=== PATIENT | male | born 1995 | race Caucasian/White ===

== ENCOUNTER 2018-06-12 18:13 | Emergency (ER) | payer MEDICAID ==
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
[2018-06-12] MEDS ORDERED: NS 1,000 ML IV ONE (18:39)
[2018-06-12 19:06] LABS: PLATELET COUNT 271 10^3/uL (150-400)
[2018-06-12 19:20] LABS: CREATINE KINASE 1016 IU/L (0-224)
[2018-06-12 20:38] LABS: CREATINE KINASE 848 IU/L (0-224)
[2018-06-12 20:51] VITALS: BP 160/105
== END 2018-06-12 20:50 | disposition home or self-care (01) ==
LOC: EDUNIT#
DX: F15.10 Other stimulant abuse, uncomplicated (principal); F41.8 Other specified anxiety disorders; E86.9 Volume depletion, unspecified
CPT/HCPCS: 80305; G0480

== ENCOUNTER 2018-06-12 22:12 | Emergency (ER) | payer MEDICAID, OTHER ==
--- NOTE | 2018-06-12 22:13 | EDPHY ---
H & P Time Seen by Provider: 06/12/18 22:13 HPI/ROS: HPI CHIEF COMPLAINT: Agitation, paranoia, recent methamphetamine use HISTORY OF PRESENT ILLNESS: This is a 22-year-old male, he staying at a long-term house, he admits to doing methamphetamine 2 days ago, presents emergency room after being seen earlier for anxiety, acute agitation, paranoia. Patient states people are chasing him. He was seen here earlier in common cooperative and was discharged. However when out to the parking lot was looking through cars in causing a disturbance. He was brought back to the emergency room. He states he feels very anxious. He states people are chasing him. Past Medical History: He denies significant medical history Past Surgical History: Denies significant surgical history Social History: Methamphetamine use. Family History: Noncontributory ROS REVIEW OF SYSTEMS: 10 Systems were reviewed and negative with the exception of the elements mentioned in the history of present illness. Exam Constitutional triage nursing summary reviewed, vital signs reviewed, awake/ alert. Eyes normal conjunctivae and sclera, EOMI, PERRLA. HENT normal inspection, atraumatic, moist mucus membranes, no epistaxis, neck supple/ no meningismus, no raccoon eyes. Respiratory clear to auscultation bilaterally, normal breath sounds, no respiratory distress, no wheezing. Cardiovascular rate normal, regular rhythm, no murmur, no edema, distal pulses normal. Gastrointestinal soft, non-tender, no rebound, no guarding, normal bowel sounds, no distension, no pulsatile mass. Genitourinary no CVA tenderness. Musculoskeletal no midline vertebral tenderness, full range of motion, no calf swelling, no tenderness of extremities, no meningismus, good pulses, neurovascularly intact. Skin pink, warm, & dry, no rash, skin atraumatic. Neurologic awake, alert and oriented x 3, AAOx3, moves all 4 extremities equally, motor intact, sensory intact, CN II-XII intact, normal cerebellar, normal vision, normal speech. Psychiatric the paranoid, anxious, agitated. Heme/Lymph/Immune no lymphadenopathy. Differential Diagnosis: Includes but is not limited to in a particular order paranoia from methamphetamine use, acute agitation from methamphetamine, underlying mental illness, mood disorder, bipolar disorder, psychosis drug induced Medical Decision Making: Plan for this patient 10 mg p.o. Zyprexa, blood draw all, and detainer. At this time will not place the patient on M1 hold. However will pull bloods. Will re-evaluate later this morning after he sleeps and rest and receive Zyprexa to see if his mental state improves. Re-evaluation: 625: No acute events overnight patient has been resting after Zyprexa in 10 mg IM Haldol. He is not on M1 hold he will need to re-evaluation once awake. 0712: Patient re-evaluated this time is resting comfortably no acute distress. He is mentating appropriately. He is, cooperative he answers my questions appropriately. He is alert and oriented. He does not appear psychotic. Mentating appropriately. He states that he would like to go home to his long-term house. Denies any suicidal homicidal ideation. Denies being depressed. Denies wanting to hurt somebody else. Denies want hurt himself. I do recommend that he stop doing methamphetamine as this is most likely the cause of his psychosis. He received Haldol and Zyprexa last night. He slept almost the entire night and now is much more appropriate. He denies being paranoid. He is not seeing anything and is safe for discharge Source: Patient - Medical/Surgical History Hx Asthma: Yes Hx Chronic Respiratory Disease: No Hx Diabetes: No Hx Cardiac Disease: No Hx Renal Disease: No Hx Cirrhosis: No Hx Alcoholism: No Hx HIV/AIDS: No Hx Splenectomy or Spleen Trauma: No Other PMH: asthma, depression and anxiety - Social History Smoking Status: Never smoked Constitutional: Initial Vital Signs Temperature (C) 37 C 06/12/18 22:26 Heart Rate 120 H 06/12/18 22:26 Respiratory Rate 16 06/12/18 22:26 Blood Pressure 135/74 H 06/12/18 22:26 O2 Sat (%) 96 06/12/18 22:26 O2 Delivery Mode Room Air Allergies/Adverse Reactions: amoxicillin Allergy (Verified 06/12/18 22:36) Home Medications: Medication Instructions Recorded Effexor Xr 06/12/18 Medical Decision Making - Data Points Laboratory Results: Laboratory Results 06/12/18 22:30 06/12/18 22:30 06/12/18 06/12/18 06/12/18 22:30 22:30 22:30 WBC 8.10 10^3/uL 10^3/uL (3.80-9.50) RBC 4.94 10^6/uL 10^6/uL (4.40-6.38) Hgb 14.3 g/dL g/dL (13.7-17.5) Hct 41.2 % % (40.0-51.0) MCV 83.4 fL fL (81.5-99.8) MCH 28.9 pg pg (27.9-34.1) MCHC 34.7 g/dL g/dL (32.4-36.7) RDW 11.9 % % (11.5-15.2) Plt Count 261 10^3/uL 10^3/uL (150-400) MPV 9.7 fL fL (8.7-11.7) Neut % (Auto) 61.1 % % (39.3-74.2) Lymph % (Auto) 26.0 % % (15.0-45.0) [place] % (Auto) 9.6 % % (4.5-13.0) Eos % (Auto) 2.2 % % (0.6-7.6) Baso % (Auto) 0.7 % % (0.3-1.7) Nucleat RBC Rel Count 0.0 % % (0.0-0.2) Absolute Neuts (auto) 4.94 10^3/uL 10^3/uL (1.70-6.50) Absolute Lymphs (auto) 2.11 10^3/uL 10^3/uL (1.00-3.00) Absolute Monos (auto) 0.78 10^3/uL 10^3/uL (0.30-0.80) Absolute Eos (auto) 0.18 10^3/uL 10^3/uL (0.03-0.40) Absolute Basos (auto) 0.06 10^3/uL 10^3/uL (0.02-0.10) Absolute Nucleated RBC 0.00 10^3/uL 10^3/uL (0-0.01) Immature Gran % 0.4 % % (0.0-1.1) Immature Gran # 0.03 10^3/uL 10^3/uL (0.00-0.10) Sodium 141 mEq/L mEq/L (135-145) Potassium 4.1 mEq/L mEq/L (3.3-5.0) Chloride 108 mEq/L mEq/L (97-110) Carbon Dioxide 22 mEq/l mEq/l (22-31) Anion Gap 11 mEq/L mEq/L (8-16) BUN 13 mg/dL mg/dL (7-23) Creatinine 0.7 mg/dL mg/dL (0.7-1.3) Estimated GFR > 60 Glucose 87 mg/dL mg/dL (70-100) Calcium 9.7 mg/dL mg/dL (8.5-10.4) Urine Opiates Screen NEGATIVE (NEGATIVE) Urine Barbiturates NEGATIVE (NEGATIVE) Ur Phencyclidine Scrn NEGATIVE (NEGATIVE) Ur Amphetamine Screen NEGATIVE (NEGATIVE) U Benzodiazepines Scrn NEGATIVE (NEGATIVE) Urine Cocaine Screen NEGATIVE (NEGATIVE) U Marijuana (THC) Screen NEGATIVE (NEGATIVE) Ethyl Alcohol < 10 mg/dL mg/dL (0-10) Medications Given: Discontinued Medications Haloperidol Lactate (Haldol Injection) 10 mg IM EDNOW ONE Stop: 06/12/18 23:39 Last Admin: 06/12/18 23:42 Dose: 10 mg Olanzapine (Olanzapine) 10 mg PO ONCE ONE Stop: 06/12/18 22:22 Last Admin: 06/12/18 22:36 Dose: 10 mg Departure - Departure Disposition: Home, Routine, Self-Care Clinical Impression: Methamphetamine abuse Condition: Good Instructions: Methamphetamine Abuse (ED) Additional Instructions: 1. Please stop doing methamphetamine. It is very dangerous. Referrals: NONE *PRIMARY CARE P,. [Primary Care Provider] - As per Instructions
[2018-06-12] MEDS ORDERED: OLANZapine 5 MG TAB PO ONE (22:21)
[2018-06-12 22:43] LABS: PLATELET COUNT 261 10^3/uL (150-400)
[2018-06-12] MEDS ORDERED: HALOPERIDOL LACT 5 MG/ML INJ ONE (23:34)
[2018-06-12] MEDS ORDERED: HALOPERIDOL LACT 5 MG/ML INJ IM ONE (23:38)
[2018-06-13 07:21] VITALS: BP 123/79
--- NOTE | 2018-06-13 07:25 | ASMTTCLDSP ---
TLC Discharge Disposition Disposition: Answers: Discharge Disposition Notes: Notes: In consultation with [facility] ED physician, Vladimir Beltran MD concurred that the patient does not appear to meet 27-65 criteria requiring psychiatric hospitalization as patient does not appear to be an imminent risk of harm to self/others/gravely disabled due to a mental illness condition. Was patient given the Answers: Not applicable Inpatient Behavioral Health Prohibited Belongings List while in the ED? Date Signed: 06/13/2018 07:23 AM Electronically Signed By:Richa Rivera
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
== END 2018-06-13 08:35 | disposition home or self-care (01) ==
PROC: GZ11ZZZ Psychological Tests, Personality and Behavioral (ICD-10-PCS; principal; 2018-06-12)
DX: F15.10 Other stimulant abuse, uncomplicated (principal)
CPT/HCPCS: 80305; G0480; J1630

== ENCOUNTER 2018-06-14 19:26 | Emergency (ER) | payer MEDICAID ==
[2018-06-14] MEDS ORDERED: NS 1,000 ML IV ONE (19:33)
[2018-06-14] MEDS ORDERED: IOPAMIDOL (ISOVUE-300) 100 ML BTL ONE (19:35)
--- NOTE | 2018-06-14 19:38 | EDPHY ---
General Time Seen by Provider: 06/14/18 19:34 Narrative: CHIEF COMPLAINT: Jaw pain HISTORY OF PRESENT ILLNESS: Patient presents by EMS and is seen at time arrival. He complains of right jaw pain points to the right mandible. He rates it as severe pain. Started earlier today. Unable to open his mouth. No fever chills. No chest pain or cough. He says that he removed 1 of his own teeth last week due to a cavity. He says it was so loose he was able to remove easily. He was doing fine until earlier today. He has no other associated complaints or modifying factors. REVIEW OF SYSTEMS: 10 systems were reviewed and negative with the exception of the elements mentioned in the history of present illness. PCP: None SPECIALISTS: None PAST MEDICAL HISTORY: Denies any medical history but takes venlafaxine PAST SURGICAL HISTORY: No surgical history SOCIAL HISTORY: Admits to daily tobacco use. Denies any current drug use but reports recent methamphetamine use. FAMILY HISTORY: Noncontributory EXAMINATION: General Appearance: Alert, no distress Head: normocephalic, atraumatic Eyes: Pupils equal and round, no conjunctival pallor or injection ENT, Mouth: Mucous membranes moist. There is trismus and I am unable to fully visualize the posterior teeth on the right mandible. Unable to visualize the uvula and it is midline. No obvious edema of the posterior pharynx. Neck: Normal inspection, supple, non-tender. There is tender right anterior cervical lymphadenopathy. Respiratory: Lungs are clear to auscultation. No wheezing rhonchi or crackles Cardiovascular: Regular rate and rhythm. No murmur. Neurological: A&O, nonfocal Skin: Warm and dry, no rash Extremities: Nontender, no pedal edema Psychiatric: Mood and affect normal DIFFERENTIAL DIAGNOSES: Including but not limited to dental abscess, facial abscess, Ashwin's angina, dental pain, mandibular pain, bipolar disorder MDM: 7:35 p.m. Right jaw pain with trismus on exam. Unable to fully visualize the back teeth on the right mandible. Reports self excretion of a tooth last week, but is difficult to visualize this given the trismus. I have ordered imaging in the soft tissue to rule out abscess. Vital signs are within normal limits. No SIRS criteria. 8:00 p.m. Patient's CBC is unremarkable with minimal leukocytosis with no shift. Creatinine is normal at 0.6. I have notified non destructive evaluation technician to proceed with scan. 8:45 p.m. Notified by radiologist Dr. Calzada. There is no acute findings on the CT scan of the neck soft tissue. No abscess. Mild asymmetry noted, thought to be positional. Patient re-evaluated. He is now open his mouth more former. Unable to visualize the posterior pharynx and it is symmetric with midline uvula. There is no palpable fluctuance or abscess. Discussed the need for follow-up with dentist due to his likely dental anders pain. We discussed ED precautions. He is discharged in stable condition. SUPERVISION: This patient was independently evaluated without direct involvement of or examination by the attending physician. CONSULTATION: None - History Smoking Status: Current every day smoker - Objective Vital Signs: Initial Vital Signs Temperature (C) 99.3 F 06/14/18 19:32 Heart Rate 94 06/14/18 19:32 Respiratory Rate 18 06/14/18 19:32 Blood Pressure 148/84 H 06/14/18 19:32 O2 Sat (%) 96 06/14/18 19:32 O2 Delivery Mode Room Air Allergies/Adverse Reactions: amoxicillin Allergy (Verified 06/12/18 22:36) Home Medications: Medication Instructions Recorded Effexor Xr 06/12/18 Ibuprofen 600 mg PO Q8 PRN #15 tablet 06/14/18 Laboratory Results: Laboratory Results 06/14/18 19:40 06/14/18 06/14/18 19:55 19:40 WBC 10.71 10^3/uL H 10^3/uL (3.80-9.50) RBC 5.18 10^6/uL 10^6/uL (4.40-6.38) Hgb 15.2 g/dL g/dL (13.7-17.5) POC Hgb 15.3 gm/dL gm/dL (13.7-17.5) Hct 43.2 % % (40.0-51.0) POC Hct 45 % % (40-51) MCV 83.4 fL fL (81.5-99.8) MCH 29.3 pg pg (27.9-34.1) MCHC 35.2 g/dL g/dL (32.4-36.7) RDW 11.7 % % (11.5-15.2) Plt Count 300 10^3/uL 10^3/uL (150-400) MPV 9.4 fL fL (8.7-11.7) Neut % (Auto) 68.6 % % (39.3-74.2) Lymph % (Auto) 22.0 % % (15.0-45.0) Beauregard % (Auto) 6.5 % % (4.5-13.0) Eos % (Auto) 1.8 % % (0.6-7.6) Baso % (Auto) 0.7 % % (0.3-1.7) Nucleat RBC Rel Count 0.0 % % (0.0-0.2) Absolute Neuts (auto) 7.34 10^3/uL H 10^3/uL (1.70-6.50) Absolute Lymphs (auto) 2.36 10^3/uL 10^3/uL (1.00-3.00) Absolute Monos (auto) 0.70 10^3/uL 10^3/uL (0.30-0.80) Absolute Eos (auto) 0.19 10^3/uL 10^3/uL (0.03-0.40) Absolute Basos (auto) 0.08 10^3/uL 10^3/uL (0.02-0.10) Absolute Nucleated RBC 0.00 10^3/uL 10^3/uL (0-0.01) Immature Gran % 0.4 % % (0.0-1.1) Immature Gran # 0.04 10^3/uL 10^3/uL (0.00-0.10) POC Sodium 141 mEq/L mEq/L (135-145) POC Potassium 3.9 mEq/L mEq/L (3.3-5.0) POC Chloride 106 mEq/L mEq/L (97-110) POC BUN 14 mg/dL mg/dL (7-23) POC Creatinine 0.6 mg/dL L mg/dL (0.7-1.3) POC Glucose 84 mg/dL mg/dL (70-100) Medications Given: Discontinued Medications Acetaminophen (Tylenol) 1,000 mg PO EDNOW ONE Stop: 06/14/18 19:52 Last Admin: 06/14/18 19:55 Dose: 1,000 mg Sodium Chloride (Ns) 1,000 mls @ 0 mls/hr IV EDNOW ONE; Wide Open PRN Reason: Protocol Stop: 06/14/18 19:34 Last Admin: 06/14/18 19:55 Dose: 1,000 mls Point of Care Test Results: Chemistry 06/14/18 19:55 POC Sodium 141 mEq/L mEq/L (135-145) POC Potassium 3.9 mEq/L mEq/L (3.3-5.0) POC Chloride 106 mEq/L mEq/L (97-110) POC BUN 14 mg/dL mg/dL (7-23) POC Creatinine 0.6 mg/dL L mg/dL (0.7-1.3) POC Glucose 84 mg/dL mg/dL (70-100) ISTAT H&H 06/14/18 19:55 POC Hgb 15.3 gm/dL gm/dL (13.7-17.5) POC Hct 45 % % (40-51) Departure - Departure Disposition: Home, Routine, Self-Care Clinical Impression: Pain, dental, Pain due to dental caries Condition: Good Instructions: Toothache (ED) Additional Instructions: 1. Call dental aid tomorrow to be seen on or Tuesday 2. ED precautions for worsening pain, fever, difficulty opening her mouth, difficulty swallowing Referrals: [facility] [Outside] - As per Instructions [facility] [Outside] - As per Instructions Wili Browne DO [Doctor of Osteopathy] - As per Instructions Prescriptions: Ibuprofen 600 mg PO Q8 PRN #15 tablet PRN Reason: Pain, Mild
[2018-06-14] MEDS ORDERED: ACETAMINOPHEN 500 MG TAB PO ONE (19:51)
[2018-06-14] MEDS ORDERED: ACETAMINOPHEN 500 MG TAB ONE (19:52)
[2018-06-14 20:01] LABS: PLATELET COUNT 300 10^3/uL (150-400)
[2018-06-14] MEDS ORDERED: IBUPROFEN 600 MG TAB PO ONE (20:47)
[2018-06-14] MEDS ORDERED: diphenhydrAMINE 25 MG CAP PO ONE ×2 (20:54→21:15)
[2018-06-14 21:44] VITALS: BP 124/88
== END 2018-06-14 21:44 | disposition home or self-care (01) ==
LOC: EDUNIT#
DX: K08.89 Other specified disorders of teeth and supporting structures (principal); K02.9 Dental caries, unspecified; R68.84 Jaw pain; F17.210 Nicotine dependence, cigarettes, uncomplicated
CPT/HCPCS: 82435-PO; 82565-PO; 82947-PO; 84132-PO; 84295-PO; 84520-PO; 85014-PO; 96374; J1200; Q9967

== ENCOUNTER 2018-06-14 22:20 | Emergency (ER) | payer MEDICAID ==
[2018-06-14] MEDS ORDERED: LORazepam 1 MG TAB PO ONE (22:34)
--- NOTE | 2018-06-14 22:39 | EDPHY ---
H & P Stated Complaint: jaw tightness seen earlier reaction to haldol ? Time Seen by Provider: 06/14/18 22:25 HPI/ROS: HPI The patient presents with 1 day of jaw pain and clenching of his jaw. He was seen earlier in the emergency department and had a CT of his mouth and face with IV contrast which showed no abscess or any other unusual findings. He felt better after receiving Benadryl 50 IV and was discharged from the emergency department. He returns now because his symptoms have recurred. He was recently in the emergency department for psychosis related to meth. He was given Haldol so there was some concern for a dystonic reaction. The patient said that he extracted his own right lower molar several days ago. He has no prior history of similar. He does not have a history of TMJ syndrome. REVIEW OF SYSTEMS Constitutional: No fever, no chills. Eyes: No discharge. ENT: No sore throat. Cardiovascular: No chest pain, no palpitations. Respiratory: No cough, no shortness of breath. Gastrointestinal: No abdominal pain, no vomiting. Genitourinary: No hematuria. Musculoskeletal: No back pain. Skin: No rashes. Neurological: No headache. PMHx: Asthma, depression, anxiety Soc Hx: Prior meth use, currently sitting at a group home house PHYSICAL General Appearance: Alert, uncomfortable appearing Eyes: Pupils equal and round no pallor or injection ENT, Mouth: Trismus is present, he can open his mandible 2-3 cm before pain, anterior oropharynx appears normal, he has ulceration of his right lip Respiratory: There are no retractions, lungs are clear to auscultation Cardiovascular: Regular rate and rhythm Gastrointestinal: Abdomen is soft and non-tender, no masses, bowel sounds normal Neurological: A&O, moves all extremities Skin: Warm and dry, no rashes Musculoskeletal: Neck is supple non tender Extremities: symmetrical, full range of motion Psychiatric: Patient is oriented X 3, there is no agitation Source: Patient Exam Limitations: No limitations - Personal History Current Tetanus/Diphtheria Vaccine: Yes Current Tetanus Diphtheria and Acellular Pertussis (TDAP): Yes - Medical/Surgical History Hx Asthma: Yes Hx Chronic Respiratory Disease: No Hx Diabetes: No Hx Cardiac Disease: No Hx Renal Disease: No Hx Cirrhosis: No Hx Alcoholism: No Hx HIV/AIDS: No Hx Splenectomy or Spleen Trauma: No Other PMH: asthma, depression and anxiety - Social History Smoking Status: Current every day smoker Constitutional: Initial Vital Signs Temperature (C) 37.1 C 06/14/18 22:22 Heart Rate 75 06/14/18 22:22 Respiratory Rate 18 06/14/18 22:22 Blood Pressure 152/83 H 06/14/18 22:22 O2 Sat (%) 93 06/14/18 22:22 O2 Delivery Mode Room Air Allergies/Adverse Reactions: amoxicillin Allergy (Verified 06/12/18 22:36) Home Medications: Medication Instructions Recorded Effexor Xr 06/12/18 Ibuprofen 600 mg PO Q8 PRN #15 tablet 06/14/18 Medical Decision Making Differential Diagnosis: 22-year-old male presents with trismus and bilateral jaw pain, improved earlier today after receiving Benadryl 50 IV, thought to be dystonic reaction to Haldol. Had a CT max face with IV contrast which was relatively unremarkable. I feel he could be suffering from TMJ syndrome, I will treat him with Ativan here. He improved with ativan. He likely is suffering from jaw spasm related to possible TMJ. I will give him a short course of Ativan to go home with. - Data Points Medications Given: Discontinued Medications Lorazepam (Ativan) 1 mg PO EDNOW ONE Stop: 06/14/18 22:35 Last Admin: 06/14/18 22:40 Dose: 1 mg Lorazepam (Ativan 1 Mg Prepack#4) 1 btl TAKEHOME EDNOW ONE Stop: 06/14/18 23:59 Last Admin: 06/15/18 00:08 Dose: 1 btl Departure - Departure Disposition: Home, Routine, Self-Care Clinical Impression: Jaw pain Condition: Good Instructions: Temporomandibular Disorder (ED) Additional Instructions: I recommend you use a heat pack or an ice pack to help with pain. Return to the emergency department if your worse in any way. Referrals: [facility],. [Clinic] - As per Instructions
[2018-06-14] MEDS ORDERED: LORAZEPAM 1 MG PREPACK#4 BTL TAKEHOME ONE (23:58)
[2018-06-15 00:11] VITALS: BP 138/84
== END 2018-06-15 00:10 | disposition home or self-care (01) ==
DX: M26.603 Bilateral temporomandibular joint disorder, unspecified (principal); J45.909 Unspecified asthma, uncomplicated; F41.8 Other specified anxiety disorders; F17.200 Nicotine dependence, unspecified, uncomplicated